=== PATIENT | female | born 1960 | race Caucasian/White ===

== ENCOUNTER 2018-08-28 06:54 | Day surgery (SDC) | payer BC ==
[~2018-08-28] VITALS: Ht 162.6 cm; Wt 75.7 kg
[2018-08-28] MEDS ORDERED: ONDANSETRON HCL 4 MG/2 ML VIAL IVP PRN (08:30)
[2018-08-28] MEDS ORDERED: fentaNYL CITRATE/PF 100 MCG/2 ML AMP IVP PRN ×2 (08:30)
[2018-08-28] MEDS ORDERED: MIDAZOLAM HCL 5 MG/5 ML VIAL IVP ONE (09:36)
[2018-08-28] MEDS ORDERED: LIDOCAINE/EPI 1% 1:100000 20 ML VIAL INJ ONE (09:36)
[2018-08-28] MEDS ORDERED: ROCURONIUM BROMIDE 10 MG/ML (ZEMURON) IV ONE (09:36)
[2018-08-28] MEDS ORDERED: NS IRRIG SOLN 1000 ML IR ONE (09:36)
[2018-08-28] MEDS ORDERED: EPINEPHrine 1 MG/ML AMP IV ONE (09:36)
[2018-08-28] MEDS ORDERED: fentaNYL CITRATE/PF 100 MCG/2 ML AMP IVP ONE (09:36)
[2018-08-28] MEDS ORDERED: SEVOFLURANE 15 MIN GAS INH ONE (09:36)
[2018-08-28] MEDS ORDERED: DEXAMETHASONE SOD PHOSPHATE 4 MG/ML VIAL IVP ONE (09:36)
[2018-08-28] MEDS ORDERED: LR 1,000 ML IV.SOLN IV ONE (09:36)
[2018-08-28] MEDS ORDERED: WATER FOR IRRIGATION,STERILE 1,000 ML IRRIG.SOLN IR ONE (09:36)
[2018-08-28] MEDS ORDERED: GLYCOPYRROLATE 0.2 MG/ML VIAL IJ ONE (09:36)
[2018-08-28] MEDS ORDERED: NEOSTIGMINE METHYLSULFATE 1 MG/ML, 10 ML VIAL IVP ONE (09:36)
[2018-08-28] MEDS ORDERED: OXYMETAZOLINE HCL 0.05% NASAL SPRAY NS ONE (09:36)
[2018-08-28] MEDS ORDERED: hydrALAZINE HCL 20 MG/ML VIAL IVP ONE (12:00)
[2018-08-28] MEDS ORDERED: hydrALAZINE HCL 20 MG/ML VIAL ONE (12:03)
[2018-08-28] MEDS ORDERED: fentaNYL CITRATE/PF 100 MCG/2 ML AMP ONE (12:37)
[2018-08-28 13:52] VITALS: BP_SYST 117
== END 2018-08-28 13:45 | disposition home or self-care (01) ==
LOC: SDS 06:54 → SMU 07:23 → SDS 13:45
PROVIDERS: ATTEND Otolaryngology
DX: J34.2 Deviated nasal septum (principal); J32.9 Chronic sinusitis, unspecified; Z79.899 Other long term (current) drug therapy; Z98.890 Other specified postprocedural states; E03.9 Hypothyroidism, unspecified; I10 Essential (primary) hypertension; Z88.8 Allergy status to other drugs, medicaments and biological substances
CPT/HCPCS: 30140; 30520; 31255; 31267; 31298; 88304; 88305; 88311; C1726; J0360; J3010; J7120; J0171; J1100; J2250; J2710; J3490